=== PATIENT | male | born 1950 | race Native Hawaiian/Other Pacific Islander ===

== ENCOUNTER 2020-11-22 21:03 | Emergency (ER) | payer OTHER ==
[~2020-11-22] VITALS: Ht 177.8 cm; Wt 97.5 kg
[2020-11-22 21:48] LABS: PLATELET COUNT 234 K/uL (142-355)
[2020-11-22 21:54] LABS: POTASSIUM 3.4 mmol/L (3.6-5.2)
[2020-11-22 22:17] VITALS: BP 154/71; TEMP 98
[2020-11-22] MEDS ORDERED: AMLODIPINE BESYLATE PO (23:13)
[2020-11-22] MEDS ORDERED: DIOVAN320 MG PO (23:15)
[2020-11-22] MEDS ORDERED: NAMENDA5 MG PO (23:16)
[2020-11-22] MEDS ORDERED: OXCARBAZEPIN300 MG PO (23:17)
[2020-11-22] MEDS ORDERED: ASPIRIN 8181 MG PO (23:19)
[2020-11-22] MEDS ORDERED: LIPITOR10 MG PO (23:20)
[2020-11-22] MEDS ORDERED: METF500T PO (23:21)
[2020-11-22] MEDS ORDERED: JANUVIA100 MG PO (23:22)
[2020-11-22] MEDS ORDERED: HALO5TAB10 PO (23:22)
[2020-11-22] MEDS ORDERED: MELATONIN5 M2 PO (23:25)
[2020-11-22] MEDS ORDERED: ZOLOFT25 MG PO (23:26)
[2020-11-22] MEDS ORDERED: CLARITIN10 M1 PO (23:27)
[2020-11-22] MEDS ORDERED: LOPERAMIDE2 MG PO (23:28)
[2020-11-22] MEDS ORDERED: TYLENOL325 MG PO (23:28)
[2020-11-22] MEDS ORDERED: EPIPEN 2-P0.3 MG/0.3 IM (23:33)
[2020-12-01] MEDS ORDERED: AMLODIPINE BESYLATE PO (11:32)
[2020-12-01] MEDS ORDERED: ENTERIC COATED325 MG PO (11:32)
[2020-12-01] MEDS ORDERED: ACET-206 PO (11:32)
[2020-12-01] MEDS ORDERED: ATOR20TA2 PO (11:33)
[2020-12-01] MEDS ORDERED: LOPE2CAP17 PO (11:33)
[2020-12-01] MEDS ORDERED: MAGNSUS68 PO (11:33)
[2020-12-01] MEDS ORDERED: LORA10TA3 PO (11:33)
[2020-12-01] MEDS ORDERED: CHOL100034 PO (11:33)
[2020-12-01] MEDS ORDERED: [UNRECOGNIZED DRUG - CODE] PO (11:34)
[2020-12-01] MEDS ORDERED: REMERON 15MG TAB PO (11:34)
[2020-12-01] MEDS ORDERED: MEMA5TAB PO (11:34)
[2020-12-01] MEDS ORDERED: METF500T PO (11:34)
[2020-12-01] MEDS ORDERED: SERT50TA PO (11:35)
[2020-12-01] MEDS ORDERED: CYAN10009 IM (11:35)
[2020-12-01] MEDS ORDERED: OXCARBAZEPIN300 MG PO (11:35)
[2020-12-01] MEDS ORDERED: OLAN2.5T2 PO (11:35)
[2020-12-01] MEDS ORDERED: DIOVAN 160MG TAB PO (11:35)
[2020-12-01] MEDS ORDERED: SITA50TA2 PO (11:35)
[2020-12-01] MEDS ORDERED: MELATONIN MAXIMU5 MG PO (11:36)
== END 2020-11-22 22:17 | disposition still patient (30) ==
LOC: ED 21:03
PROVIDERS: Emergency Medicine Emergency Medical Services
DX: R45.1 Restlessness and agitation (principal); G30.8 Other Alzheimer's disease; F02.81 Dementia in other diseases classified elsewhere, unspecified severity, with behavioral disturbance; Z91.83 Wandering in diseases classified elsewhere; Z11.52 Encounter for screening for COVID-19; Z04.6 Encounter for general psychiatric examination, requested by authority
CPT/HCPCS: 36415; 80053; 85027; 87635; 93005; 99283; U0003